=== PATIENT | female | born 1960 | race Caucasian/White ===

== ENCOUNTER → 2016-10-20 | Outpatient (CLI) | payer OTHER ==
[~2016-10-20] MED LIST: DELTASONE DPS20 MG PO; DUONEB DPS3 ML IH; HYDROCODONE 5MG/5 MG PO; MOBIC DPS7.5 MG PO; MOTRIN-DPS400 MG PO; MUCINEX600 MG PO; PHENERGAN W/COD30 ML PO; PROAIR RESPICL90 MCG IH; PROVENTIL HFA6.7 GM IH; SINGULAIR10 MG PO; THERAPEUTIC MUL1 TAB PO; TYLENOL DPS325 MG PO; VIBRAMYCIN-DPS100 M1 PO; XANAX DPS0.25 MG PO; ZYRTEC DPS10 MG PO
== END | disposition home or self-care (01) ==
LOC: RAD.S 10-06 15:40
DX: Z12.31 Encounter for screening mammogram for malignant neoplasm of breast (principal); Z80.3 Family history of malignant neoplasm of breast